=== PATIENT | female | born 1985 | race Caucasian/White ===

== ENCOUNTER → 2023-07-08 12:18 | Outpatient (CLI) | payer OTHER, SELFPAY ==
--- NOTE | 2023-07-08 12:19 | DI.US.S_ITS ---
PROCEDURE: US PELVIC COMPLETE INDICATIONS: eval abnormal uterine bleeding TECHNIQUE: Real-time scanning was performed of the pelvic organs, with image documentation. Additional endovaginal scanning was necessary due to incomplete visualization of the adnexal and endometrial structures by transabdominal scanning. COMPARISON: None. FINDINGS: Uterus: Uterus is anteverted and normal in size at 8.9 x 3.8 x 5.0 cm. The myometrium is homogeneous. The endometrium measures 3.8 mm combined thickness. Ovaries: The right ovary measures 2.1 x 1.1 x 2.1 cm, with a calculated ovarian volume of 1.0 cc. The left ovary measures 1.7 x 2.4 x 1.2 cm, with a calculated ovarian volume of 2.5 cc. The ovaries have a normal sonographic appearance. Less than 12 follicles can be seen in each ovary. No adnexal masses are seen. Other: No pathologic free abdominal or pelvic fluid. IMPRESSION: Unremarkable pelvic ultrasound. We strive to produce accurate, complete, and clear reports of imaging services. To assist us in improving patient care, this report was composed using standard report templates and voice recognition software. Therefore, it may contain abnormal punctuation, insertions and/or omissions. Occasional wrong-word or sound-alike substitutions may occur. Though we review the report and make efforts to correct it, we do recommend that the report be read carefully in proper context to recognize any text inaccuracies. Dictated by: Lilian Coleman M.D. on 07/08/2023 at 13:51 Approved by: Lilian Coleman M.D. on 07/08/2023 at 13:52
[2023-07-08 13:01] LABS: Hematocrit 37.1 % (36-46); Hemoglobin 12.7 g/dL (12.0-16.0); Mean Corpuscular HGB Conc 34.3 % (30-36); Mean Corpuscular Hemoglobin 30.5 PG (26-34); Mean Corpuscular Volume 88.7 fL (80-100); Platelet Count 257 X10^3/uL (150-400); Red Blood Cell Count 4.18 X10^6/uL (4.0-5.2); White Blood Cell Count 5.2 X10^3/uL (4.5-11.0)
[2023-07-08 13:39] LABS: Alanine Aminotransferase 16 IU/L (<35); Albumin 4.6 g/dL (3.5-5.0); Albumin Globulin Ratio 1.6 (1.0-2.8); Alkaline Phosphatase 37 U/L (38-126); Aspartate Aminotransferase 25 IU/L (14-36); Bilirubin Total 0.4 mg/dL (0.2-1.3); Blood Urea Nitrogen 13 mg/dL (7-17); Calcium 9.6 mg/dL (8.4-10.2); Carbon Dioxide 26 mmol/L (22-32); Chloride 102 mmol/L (98-107); Cholesterol 197 mg/dL (140-199); Estimated Glomerular Filt Rate > 60 mL/min (>60); Globulin 2.9 g/dL (1.7-4.1); Glucose 90 mg/dL (70-100); HDL Cholesterol 64 mg/dL (40-60); HEMOLYSIS < 15 (0-50); LDL Cholesterol Calculated 115 mg/dL (<100); Potassium 3.9 mmol/L (3.4-5.1); Sodium 138 mmol/L (137-145); Total Protein 7.5 g/dL (6.3-8.2); Triglycerides 90 mg/dL (35-150)
[2023-07-08 13:54] LABS: Free T4, Direct Thyroxine 1.07 ng/dL (0.78-2.19)
[2023-07-08 14:07] LABS: Thyroid Stimulating Hormone 1.01 uIU/mL (0.47-4.68)
== END ==
PROVIDERS: PCP Registered Nurse Diabetes Educator; Referring Provider Registered Nurse Diabetes Educator; Visit Provider Registered Nurse Diabetes Educator
DX: Z00.00 Encounter for general adult medical examination without abnormal findings (principal); N93.9 Abnormal uterine and vaginal bleeding, unspecified; F32.A Depression, unspecified
CPT/HCPCS: 36415; 76830; 76856; 80053; 80061; 84439; 84443; 85027

== ENCOUNTER → 2024-06-05 15:18 | Outpatient (CLI) | payer OTHER, SELFPAY ==
--- NOTE | 2024-06-05 15:20 | DI.RAD.S_ITS ---
PROCEDURE: XR CHEST 2V INDICATIONS: eval for bony anomaly associated with possible TOS TECHNIQUE: 2 views of the chest were acquired. COMPARISON: None. FINDINGS: Surgical changes and devices: None. Lungs and pleura: Lungs are clear. No pleural effusions or pneumothorax. Mediastinum: Mediastinal contours are normal. Heart size is normal. Bones and chest wall: No suspicious bony abnormalities. Soft tissues appear unremarkable. IMPRESSION: negative chest . Dictated by: Konstantin Amin M.D. on 06/07/2024 at 14:39 Approved by: Konstantin Amin M.D. on 06/07/2024 at 14:40
--- NOTE | 2024-06-05 15:20 | DI.RAD.S_ITS ---
PROCEDURE: XR CERVICAL SPINE 2V OR 3V INDICATIONS: eval neck pain, LUE radiculopathy TECHNIQUE: Three views (s) of the cervical spine were acquired. COMPARISON: None. FINDINGS: Bones: The cervical spine is normal in curvature, alignment and disc height. There are no osseous abnormalities. Soft tissues: No prevertebral soft tissue swelling. IMPRESSION: << normal cervical spine. Dictated by: Konstantin Amin M.D. on 06/07/2024 at 14:49 Approved by: Konstantin Amin M.D. on 06/07/2024 at 14:50
--- NOTE | 2024-06-05 15:20 | DI.RAD.S_ITS ---
PROCEDURE: XR ELBOW LT MIN 3V INDICATIONS: fall, pain TECHNIQUE: 3 views of the elbow were acquired. COMPARISON: None. FINDINGS: Bones: No fractures or dislocations. No suspicious bony lesions. Soft tissues: No elbow joint effusion. No suspicious soft tissue calcifications. IMPRESSION: No acute bony abnormality or significant joint effusion. Dictated by: Konstantin Amin M.D. on 06/07/2024 at 14:37 Approved by: Konstantin Amin M.D. on 06/07/2024 at 14:39
== END ==
PROVIDERS: PCP Registered Nurse Diabetes Educator; Referring Provider Registered Nurse Diabetes Educator; Visit Provider Registered Nurse Diabetes Educator
DX: M54.12 Radiculopathy, cervical region (principal); M54.2 Cervicalgia; G56.22 Lesion of ulnar nerve, left upper limb; M25.522 Pain in left elbow; R09.89 Other specified symptoms and signs involving the circulatory and respiratory systems; M79.602 Pain in left arm; R20.2 Paresthesia of skin
CPT/HCPCS: 71046; 72040; 73080

== ENCOUNTER → 2024-06-06 09:31 | Outpatient (CLI) | payer OTHER, SELFPAY | PROVIDERS: PCP Registered Nurse Diabetes Educator; Visit Provider Nurse Practitioner Family | DX: R21 Rash and other nonspecific skin eruption (principal) | CPT/HCPCS: 87070; 87077; 87147; 87186; 87205 ==

== ENCOUNTER → 2024-06-12 11:45 | Outpatient (CLI) | payer OTHER, SELFPAY ==
--- NOTE | 2024-06-12 11:46 | DI.US.S_ITS ---
PROCEDURE: US ART THORACIC OUT SYNDROME INDICATIONS: diminished radial pulse,arm pn, R/O THORACIC OUTLET SYNDROME TECHNIQUE: Color and pulse Doppler interrogation was performed of bilateral upper extremities arterial systems, with image documentation. COMPARISON: None. FINDINGS: RIGHT SUBCLAVIAN ARTERY: Neutral (proximal): 133 cm/sec, with triphasic flow. Neutral (distal): 149 cm/sec, with triphasic flow. Symptomatic position with arms in front (proximal): 144 cm/sec, with triphasic flow. Symptomatic position with arms in front (distal): 151 cm/sec, with triphasic flow. Bicep curl position (proximal): 155 cm/sec, with triphasic flow. Bicep curl position (distal): 123 cm/sec, with triphasic flow. Push up/resistance position (proximal): 176 cm/sec, with triphasic flow. Push up/resistance position (distal): 165 cm/sec, with triphasic flow. Arm 90 degree position (proximal): 158 cm/sec, with triphasic flow. Arm 90 degree position (distal): 146 cm/sec, with triphasic flow. Push down/resistance position (proximal): 132 cm/sec, with triphasic flow. Push down/resistance position (distal): 143 cm/sec, with triphasic flow. Edgar-scale imaging description: Decreased velocity and associated phasicity of the right subclavian vein upon pushing up. Increased velocities upon pushing down. LEFT SUBCLAVIAN ARTERY: Neutral (proximal): 140 cm/sec, with triphasic flow. Neutral (distal): 136 cm/sec, with triphasic flow. Symptomatic position with arms in front (proximal): 149 cm/sec, with triphasic flow. Symptomatic position with arms in front (distal): 131 cm/sec, with triphasic flow. Bicep curl position (proximal): 165 cm/sec, with triphasic flow. Bicep curl position (distal): 122 cm/sec, with triphasic flow. Push up/resistance position (proximal): 176 cm/sec, with triphasic flow. Push up/resistance position (distal): 88-106 cm/sec, with tri to biphasic flow. Arm 90 degree position (proximal): 188 cm/sec, with triphasic flow. Arm 90 degree position (distal): 153 cm/sec, with triphasic flow. Push down/resistance position (proximal): 189 cm/sec, with triphasic flow. Push down/resistance position (distal): 145 cm/sec, with triphasic flow. Edgar-scale imaging description: Increased velocity within the left subclavian vein upon neutral and pushed down maneuvers. IMPRESSION: 1. Change in pre and post clavicular arterial velocity and waveform within the left subclavian artery upon push-up resistance maneuver as described above raising possibility of arterial thoracic outlet syndrome. Further evaluation with CT angiogram of the chest is recommended. 2. No change in pre and post clavicular arterial waveform following provocative maneuvers involving the right subclavian artery. Dictated by: Ceasar Gonzales M.D. on 06/12/2024 at 15:52 Approved by: Ceasar Gonzales M.D. on 06/12/2024 at 16:48
== END ==
PROVIDERS: PCP Registered Nurse Diabetes Educator; Referring Provider Registered Nurse Diabetes Educator; Visit Provider Registered Nurse Diabetes Educator
DX: R09.89 Other specified symptoms and signs involving the circulatory and respiratory systems (principal); M79.602 Pain in left arm; R20.2 Paresthesia of skin
CPT/HCPCS: 93930

== ENCOUNTER → 2024-06-15 13:18 | Outpatient (CLI) | payer OTHER, SELFPAY ==
--- NOTE | 2024-06-15 13:19 | DI.CT.S_ITS ---
PROCEDURE: CT ANGIO CHEST INDICATIONS: further eval, R/O L arterial thoracic outlet syndrome TECHNIQUE: After the administration of intravenous contrast, 2.5 mm thick sections acquired from the lung apices to the posterior lung bases. Maximum intensity projection (MIP) oblique sagittal reformats were then acquired parallel to the aortic arch. For radiation dose reduction, the following was used: automated exposure control. Repeat imaging was performed with arm in abduction. COMPARISON: [facility], , ART THORACIC OUT SYNDROME, 06/12/2024, 11:59. FINDINGS: Image quality: Excellent. Aorta: Aorta and great vessels are normal in size. No mural irregularity or contrast extravasation to suggest aortic injury. Left upper extremity arterial tree: There is mild narrowing of the left subclavian artery secondary to extrinsic indentation from a scalene muscle at its anterior aspect. The left axillary, and brachial artery are patent as visualized. This is unchanged with arm abduction. Lower Neck: No enlarged lymph nodes. Thyroid: No thyroid nodules which require sonographic follow up, per consensus guidelines. Axillae: No enlarged lymph nodes. Chest Wall: Unremarkable. Bones: Unremarkable. Lungs and Pleura: No pneumothorax or pleural effusions. No consolidation or suspicious nodules. Heart: Heart size is normal. No pericardial effusion. Thoracic Vessels: Pulmonary arteries demonstrate normal size. Mediastinum and Bren: No enlarged lymph nodes. Esophagus: No wall thickening. No hiatal hernia. Upper Abdomen: Visualized upper abdomen solid organs and bowel loops appear normal. IMPRESSION: 1. Extrinsic compression of the left subclavian artery secondary to scalene muscle anteriorly, causing mild narrowing. Dictated by: Beulah Dunbar M.D. on 06/15/2024 at 15:20 Approved by: Beulah Dunbar M.D. on 06/15/2024 at 15:40
== END ==
LOC: CT 13:19
PROVIDERS: PCP Registered Nurse Diabetes Educator; Referring Provider Registered Nurse Diabetes Educator; Visit Provider Registered Nurse Diabetes Educator
DX: G54.0 Brachial plexus disorders (principal); I77.1 Stricture of artery
CPT/HCPCS: 71275; Q9967

== ENCOUNTER 2024-11-29 09:45 | Outpatient (RCR) | payer OTHER, SELFPAY ==
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
== END 2025-02-27 10:19 | disposition home or self-care (01) ==
LOC: PHYS 09:45
PROVIDERS: Family Provider Registered Nurse Diabetes Educator; PCP Registered Nurse Diabetes Educator; Referring Provider Registered Nurse Diabetes Educator; Visit Provider Registered Nurse Diabetes Educator
DX: G54.0 Brachial plexus disorders (principal); M79.602 Pain in left arm; R20.2 Paresthesia of skin
CPT/HCPCS: 97110; 97140; 97162